=== PATIENT | male | born 2000 | race African-American/Black ===

== ENCOUNTER 2023-08-20 15:02 | Emergency (ER) | payer SELFPAY ==
[2023-08-20 15:12] VITALS: BMI 23.1
[2023-08-20 17:22] VITALS: BP 97/65; PULSE 51; RESP 18; TEMP 97.7
== END 2023-08-20 17:19 | disposition home or self-care (01) ==
LOC: JER 15:02
DX: F13.90 Sedative, hypnotic, or anxiolytic use, unspecified, uncomplicated (principal)
CPT/HCPCS: 99282-25